=== PATIENT | male | born 1975 | race Caucasian/White ===

== ENCOUNTER 2021-10-30 10:28 | Observation (INO) | payer OTHER ==
[~2021-10-30 10:28] MED LIST: Iopamidol-370 76% 500 ML 1 ML ONE
[2021-10-30 11:13] LABS: #Basophils 0.1 thou/uL (0.0-0.2); #Eosinphils 0.3 thou/uL (0.0-0.7); #Lymphocytes 2.2 thou/uL (1.20-3.40); #Monocytes 0.5 thou/uL (0.11-0.59); #Neutrophils 3.4 thou/uL (1.40-6.50); %Eosinophils 4.4 % (0.0-10.0); %Lymphocytes 33.8 % (21.0-51.0); %Monocytes 7.1 % (0.0-10.0); %Neutrophils 53.7 % (42.0-75.0); Hemoglobin 16.5 g/dL (14.0-18.0); Mean Corpuscular HGB CONC 34.9 g/dL (32.0-36.0); Mean Corpuscular Hemoglobin 34.6 pg (27.0-31.0); Mean Corpuscular Volume 99.1 fL (78.0-98.0); Mean Platelet Volume 8.1 fL (7.4-10.4); Platelet Count 178 thou/uL (130-400); RBC Distribution Width 11.2 % (11.5-14.5); Red Blood Cell (RBC) Count 4.78 mill/uL (4.70-6.10); White Blood Cell (WBC) Count 6.4 thou/uL (4.8-10.8)
[2021-10-30 11:25] LABS: ALT (SGPT) 13 U/L (8-55); AST (SGOT) 23 U/L (5-34); Albumin 4.2 g/dL (3.5-5.0); Alkaline Phosphatase 42 U/L (40-110); Anion Gap 15 mmol/L (10-20); BUN (Urea Nitrogen) 7 mg/dL (8.9-20.6); Bilirubin, Total 0.5 mg/dL (0.2-1.2); Calc. Creatinine Clearance 0 mL/min (70-130); Calcium 8.8 mg/dL (7.8-10.44); Carbon Dioxide 23 mmol/L (22-29); Chloride 106 mmol/L (98-107); Globulin 2.9 g/dL (2.4-3.5); Glucose 117 mg/dL (70-105); Potassium 4.7 mmol/L (3.5-5.1); Protein, Total 7.1 g/dL (6.0-8.3); Sodium 139 mmol/L (136-145)
[2021-10-30 11:26] LABS: Prothrombin Time 13.2 sec (12.0-14.7)
[2021-10-30] MEDS ORDERED: diphenhydrAMINE 50 MG/ML VIAL ONE (12:51)
[2021-10-30] MEDS ORDERED: Aspirin Chewable 81 MG TAB ONE (12:51)
[2021-10-30] MEDS ORDERED: Metoclopramide HCl 10 MG/2 ML VIAL ONE (12:51)
[2021-10-30] MEDS ORDERED: Ondansetron ODT 4 MG TAB PO PRN (15:00)
[2021-10-30] MEDS ORDERED: Ondansetron PF 4 MG/2 ML Vial IVP PRN (15:00)
[2021-10-30] MEDS ORDERED: hydrALAZINE 20 MG/ML VIAL SLOW IVP PRN (15:02)
[2021-10-30] MEDS ORDERED: Ketorolac Tromethamine 30 MG/ML VIAL IVP PRN (15:04)
[2021-10-30 15:22] LABS: Troponin I Less than 0.010 ng/mL (< 0.028)
[2021-10-30 16:03] VITALS: BMI 28.4
[2021-10-30] MEDS ORDERED: Metoclopramide HCl 10 MG/2 ML VIAL IVP PRN (18:04)
[2021-10-30 18:11] LABS: Troponin I Less than 0.010 ng/mL (< 0.028)
[2021-10-30] MEDS: Atorvastatin Calcium 40 MG TAB PO SCH (20:21)
[2021-10-30] MEDS: Nicotine 14 MG PATCH TD PRN (20:25)
[2021-10-30 22:21] LABS: SARS-CoV-2 PCR by NAA Not Detected (NotDetected)
[2021-10-31] MEDS: HYDROcodone/Acetaminophen 5/325 mg Tablet PO PRN ×3 (01:02→20:06)
[2021-10-31] MEDS: Acetaminophen 325 MG TAB PO PRN ×2 (06:07→12:52)
[2021-10-31 06:11] LABS: #Basophils 0.1 thou/uL (0.0-0.2); #Eosinphils 0.3 thou/uL (0.0-0.7); #Lymphocytes 2.4 thou/uL (1.20-3.40); #Monocytes 0.4 thou/uL (0.11-0.59); #Neutrophils 3.4 thou/uL (1.40-6.50); %Basophils 0.9 % (0.0-1.0); %Eosinophils 5.2 % (0.0-10.0); %Lymphocytes 35.4 % (21.0-51.0); %Monocytes 6.7 % (0.0-10.0); %Neutrophils 51.8 % (42.0-75.0); Hemoglobin 15.2 g/dL (14.0-18.0); Mean Corpuscular HGB CONC 34.9 g/dL (32.0-36.0); Mean Corpuscular Hemoglobin 34.5 pg (27.0-31.0); Mean Corpuscular Volume 98.8 fL (78.0-98.0); Mean Platelet Volume 8.4 fL (7.4-10.4); Platelet Count 136 thou/uL (130-400); RBC Distribution Width 11.1 % (11.5-14.5); White Blood Cell (WBC) Count 6.6 thou/uL (4.8-10.8)
[2021-10-31 06:37] LABS: Anion Gap 12 mmol/L (10-20); BUN (Urea Nitrogen) 12 mg/dL (8.9-20.6); Calc. Creatinine Clearance 103 mL/min (70-130); Calcium 8.9 mg/dL (7.8-10.44); Carbon Dioxide 21 mmol/L (22-29); Cardiac Risk 4.4 (Less than 4.5); Chloride 110 mmol/L (98-107); Cholesterol 193 mg/dl (< 200 Desired); Glucose 116 mg/dL (70-105); HDL Cholesterol 44 mg/dL (>60 Neg Risk); LDL Cholesterol, Calculated 122 mg/dL; Magnesium 1.9 mg/dL (1.6-2.6); Potassium 4.3 mmol/L (3.5-5.1); Sodium 139 mmol/L (136-145); Triglycerides 134 mg/dL (Less than 150)
[2021-10-31] MEDS: Aspirin 81 mg Enteric Coated Tablet PO SCH (08:04)
[2021-10-31] MEDS: Fioricet 325/50/40 mg Tablet PO PRN ×2 (15:09→23:30)
[2021-10-31] MEDS: Atorvastatin Calcium 40 MG TAB PO SCH (20:06)
[2021-10-31] MEDS: Nicotine 14 MG PATCH TD PRN (20:07)
[2021-11-01] MEDS: HYDROcodone/Acetaminophen 5/325 mg Tablet PO PRN ×2 (05:01→11:33)
[2021-11-01 06:14] LABS: #Basophils 0.1 thou/uL (0.0-0.2); #Eosinphils 0.3 thou/uL (0.0-0.7); #Lymphocytes 1.8 thou/uL (1.20-3.40); #Monocytes 0.4 thou/uL (0.11-0.59); #Neutrophils 3.2 thou/uL (1.40-6.50); %Basophils 1.1 % (0.0-1.0); %Eosinophils 4.9 % (0.0-10.0); %Lymphocytes 31.7 % (21.0-51.0); %Monocytes 6.6 % (0.0-10.0); %Neutrophils 55.6 % (42.0-75.0); Mean Corpuscular HGB CONC 33.8 g/dL (32.0-36.0); Mean Corpuscular Hemoglobin 33.6 pg (27.0-31.0); Mean Corpuscular Volume 99.4 fL (78.0-98.0); Mean Platelet Volume 8.2 fL (7.4-10.4); Platelet Count 153 thou/uL (130-400); RBC Distribution Width 10.9 % (11.5-14.5); Red Blood Cell (RBC) Count 4.47 mill/uL (4.70-6.10); White Blood Cell (WBC) Count 5.8 thou/uL (4.8-10.8)
[2021-11-01 06:39] LABS: Anion Gap 15 mmol/L (10-20); BUN (Urea Nitrogen) 7 mg/dL (8.9-20.6); Calc. Creatinine Clearance 109 mL/min (70-130); Calcium 8.8 mg/dL (7.8-10.44); Carbon Dioxide 21 mmol/L (22-29); Chloride 106 mmol/L (98-107); Glucose 117 mg/dL (70-105); Potassium 3.9 mmol/L (3.5-5.1); Sodium 138 mmol/L (136-145)
[2021-11-01] MEDS: Aspirin 81 mg Enteric Coated Tablet PO SCH (07:47)
[2021-11-01] MEDS ORDERED: SUMAtriptan Succinate 25 MG TAB PO SCH (08:45)
[2021-11-01] MEDS ORDERED: Lisinopril 10 MG TAB PO SCH (09:00)
[2021-11-01 15:52] VITALS: BP 146/87; TEMP 97.4
[2021-11-01] MEDS: Acetaminophen 325 MG TAB PO PRN (17:36)
== END 2021-11-01 17:39 | disposition home or self-care (01) ==
LOC: ERS 10:28 → NEURO 14:38
PROVIDERS: ADMIT Internal Medicine; ATTEND Internal Medicine
DX: R55 Syncope and collapse (principal); R51.9 Headache, unspecified; R42 Dizziness and giddiness; F17.210 Nicotine dependence, cigarettes, uncomplicated; I10 Essential (primary) hypertension; R20.2 Paresthesia of skin; I08.1 Rheumatic disorders of both mitral and tricuspid valves; E78.00 Pure hypercholesterolemia, unspecified; Z66 Do not resuscitate; Z79.899 Other long term (current) drug therapy; Z20.822 Contact with and (suspected) exposure to COVID-19
CPT/HCPCS: 36415; 36416; 70450; 70496; 70498; 70551; 71045; 80048; 80053; 80061; 83036; 83735; 84443; 84484; 85025; 85610; 85730; 93005; 93306; 94760; 95712; 95819; 95957; 96365; 96375; G0378; J1200; J1885; J2765; Q9967; U0003; U0005